=== PATIENT | male | born 2000 | race African-American/Black ===

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

== ENCOUNTER 2024-07-23 07:36 | Emergency (ER) | payer SELFPAY ==
[~2024-07-23] VITALS: Ht 177.8 cm; Wt 109.0 kg
[2024-07-23 07:38] VITALS: O2SAT 99
[2024-07-23 09:18] VITALS: BP 127/53; PULSE 86; RESP 16; TEMP 36.89184; O2SAT 99
== END 2024-07-23 09:28 | disposition home or self-care (01) ==
LOC: EDSEX 07:36 → ER 07:45
DX: J06.9 Acute upper respiratory infection, unspecified (principal); B97.89 Other viral agents as the cause of diseases classified elsewhere; F41.0 Panic disorder [episodic paroxysmal anxiety]; J45.909 Unspecified asthma, uncomplicated
CPT/HCPCS: 71045; 99283

== ENCOUNTER 2024-08-11 09:54 | Emergency (ER) | payer SELFPAY ==
[~2024-08-11] VITALS: Ht 177.8 cm; Wt 108.8 kg
[2024-08-11 09:57] VITALS: O2SAT 98
[2024-08-11 10:04] VITALS: O2SAT 97
[2024-08-11] MEDS ORDERED: ACET-2708 MT (10:28)
[2024-08-11] MEDS ORDERED: ONDA4TAB50 MT (10:28)
[2024-08-11 11:03] VITALS: TEMP 100
[2024-08-11] MEDS: ACETAMINOPHEN 325MG TABLET PO ONE (11:03)
[2024-08-11 11:04] VITALS: BP 102/59; PULSE 95; RESP 18
[2024-08-11] MEDS: ONDANSETRON 4MG ODT PO ONE (11:04)
[2024-08-11] MEDS: KETOROLAC 30MG/ML VIAL IM ONE (11:04)
== END 2024-08-11 11:10 | disposition home or self-care (01) ==
LOC: ER 10:05
DX: B34.9 Viral infection, unspecified (principal); J45.909 Unspecified asthma, uncomplicated; Z20.822 Contact with and (suspected) exposure to COVID-19
CPT/HCPCS: 87804 ×2; 71045; 96372; 99284; 87426; Q0162; J1885; Z7610

== ENCOUNTER 2025-01-17 19:53 | Emergency (ER) | payer MEDICAID ==
[~2025-01-17] VITALS: Ht 157.5 cm; Wt 107.0 kg
[~2025-01-17 19:53] MED LIST: ACET-2708 MT; ONDA4TAB50 MT
[2025-01-17 20:11] VITALS: O2SAT 99
[2025-01-17 21:35] LABS: BASOPHILS % 0.8 % (0.0-2.0); DIFFERENTIAL COMMENT 0; EOSINOPHILS % 2.1 % (0.0-5.0); HEMATOCRIT. 42.5 % (36.0-48.0); HEMOGLOBIN. 14.2 g/dL (12.0-16.0); LYMPHOCYTES % 39.5 % (20.0-50.0); MEAN CORPUSCULAR HEMOGLOBIN 26.3 pg (28.0-32.0); MEAN CORPUSCULAR HGB CONC 33.4 g/dL (31.0-37.0); MEAN CORPUSCULAR VOLUME 78.8 fL (81.0-99.0); MEAN PLATELET VOLUME 8.8 fl (7.4-10.4); MONOCYTES % 6.1 % (2.0-8.0); NEUTROPHILS % 51.5 % (40.0-76.0); PLATELET 274 x1000/uL (130-400); RED CELL DISTRIBUTION WIDTH 15.6 % (11.6-14.6); WHITE BLOOD COUNT 6.7 x1000/uL (4.5-11.0)
[2025-01-17 21:41] LABS: CHLORIDE 102 mEq/L (98-107); POTASSIUM 3.7 mEq/L (3.5-5.1); SODIUM 140 mEq/L (136-145)
[2025-01-17 21:42] LABS: CALCIUM 9.8 mg/dL (8.7-10.4); CARBON DIOXIDE 32 mEq/L (21-32)
[2025-01-17 21:47] LABS: CREATININE 1.1 mg/dL (0.6-1.0); GLUCOSE 100 mg/dL (70-105); UREA NITROGEN BLOOD 16 mg/dL (9-23)
[2025-01-17 21:51] LABS: TROPONIN I HIGH SENSITIVITY < 4 ng/L (3.0-34)
[2025-01-18 00:48] VITALS: BP 112/62; PULSE 55; RESP 16; TEMP 36.6; O2SAT 99
== END 2025-01-18 00:50 | disposition home or self-care (01) ==
LOC: ER 19:53
DX: R07.89 Other chest pain (principal); J45.909 Unspecified asthma, uncomplicated; Z88.8 Allergy status to other drugs, medicaments and biological substances; Z91.041 Radiographic dye allergy status; Z98.890 Other specified postprocedural states
CPT/HCPCS: 36415; 71045; 80048; 84484; 85025; 93005; 99285

== ENCOUNTER 2025-04-03 17:51 | Emergency (ER) | payer MEDICAID ==
[~2025-04-03] VITALS: Ht 177.8 cm; Wt 105.0 kg
[2025-04-03 17:56] VITALS: TEMP 36.6; O2SAT 100
[2025-04-03] MEDS ORDERED: CELE100C MT (19:36)
[2025-04-03 20:00] VITALS: BP 130/67; PULSE 86; RESP 18; O2SAT 100
== END 2025-04-03 20:04 | disposition home or self-care (01) ==
LOC: ER 17:51
DX: R07.89 Other chest pain (principal); J45.909 Unspecified asthma, uncomplicated; Z88.8 Allergy status to other drugs, medicaments and biological substances; Z98.890 Other specified postprocedural states
CPT/HCPCS: 71045; 93005; 99283

== ENCOUNTER 2025-04-05 19:52 | Emergency (ER) | payer MEDICAID ==
[~2025-04-05] VITALS: Ht 177.8 cm; Wt 105.0 kg
[~2025-04-05 19:52] MED LIST changes: +CELE100C MT
[2025-04-05 20:08] VITALS: TEMP 36.6; O2SAT 100
[2025-04-05 21:27] LABS: BASOPHILS % 0.8 % (0.0-2.0); EOSINOPHILS % 3.1 % (0.0-5.0); HEMATOCRIT. 36.3 % (36.0-48.0); HEMOGLOBIN. 11.9 g/dL (12.0-16.0); LYMPHOCYTES % 38.1 % (20.0-50.0); MEAN PLATELET VOLUME 8.7 fl (7.4-10.4); MONOCYTES % 6.6 % (2.0-8.0); NEUTROPHILS % 51.4 % (40.0-76.0); PLATELET 261 x1000/uL (130-400); RED BLOOD CELL COUNT 4.55 mill/uL (4.2-5.4); RED CELL DISTRIBUTION WIDTH 16.2 % (11.6-14.6)
[2025-04-05] MEDS: KETOROLAC 15MG/ML VIAL IM ONE (21:27)
[2025-04-05 21:42] LABS: CREATININE 1.0 mg/dL (0.6-1.0); TROPONIN I HIGH SENSITIVITY < 4 ng/L (3.0-34); UREA NITROGEN BLOOD 13 mg/dL (9-23)
[2025-04-05] MEDS ORDERED: NAPR-1176 MT (22:24)
[2025-04-05 22:51] VITALS: BP 121/60; PULSE 83; RESP 15; O2SAT 100
== END 2025-04-05 22:53 | disposition home or self-care (01) ==
LOC: ER 19:52
DX: R07.89 Other chest pain (principal); J45.909 Unspecified asthma, uncomplicated; Z79.1 Long term (current) use of non-steroidal anti-inflammatories (NSAID); Z88.8 Allergy status to other drugs, medicaments and biological substances
CPT/HCPCS: 99285; 71045; 80048; 85025; 84484; 36415; 93005; 96372; J1885